=== PATIENT | male | born 2000 | race African-American/Black ===

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

== ENCOUNTER 2019-06-19 16:12 | Emergency (ER) | payer MEDICAID ==
[~2019-06-19] VITALS: Ht 180.3 cm; Wt 89.0 kg
[2019-06-19] MEDS ORDERED: AZITHROMYCIN 500 MG TABLET PO ONE (19:15)
[2019-06-19] MEDS ORDERED: SODIUM CHLORIDE 0.9% 1,000 ML IV ONE (19:15)
[2019-06-19] MEDS ORDERED: CEFTRIAXONE SODIUM 250 MG/VIAL IM ONE (19:15)
[2019-06-19] MEDS ORDERED: LIDOCAINE HCL 1% 20ML VIAL (Pyxis) INJ INFIL ONE (19:45)
[2019-06-19 19:58] LABS: BASOPHILS % 0.8 % (0.0-2.0); EOSINOPHILS % 2.4 % (0.0-5.0); HEMATOCRIT. 48.5 % (42.0-52.0); HEMOGLOBIN. 16.2 g/dL (14.0-18.0); LYMPHOCYTES % 44.6 % (20.0-50.0); MEAN CORPUSCULAR HEMOGLOBIN 28.2 pg (28.0-32.0); MEAN CORPUSCULAR VOLUME 84.5 fL (80.0-94.0); MEAN PLATELET VOLUME 8.1 fl (7.4-10.4); NEUTROPHILS % 41.2 % (40.0-76.0); PLATELET 201 x1000/uL (130-400); RED BLOOD CELL COUNT 5.74 mill/uL (4.7-6.1); RED CELL DISTRIBUTION WIDTH 13.3 % (11.6-14.6)
[2019-06-19 20:07] LABS: CHLORIDE 107 mEq/L (98-107)
[2019-06-19 20:12] LABS: ETHANOL BLOOD < 10 mg/dL
[2019-06-19 20:29] LABS: CLARITY URINE CLEAR (CLEAR); COLOR URINE YELLOW (YELLOW); KETONES URINE TRACE (NEGATIVE); LEUKOCYTE ESTERASE URINE NEGATIVE (NEGATIVE); NITRITE URINE NEGATIVE (NEGATIVE); OCCULT BLOOD URINE NEGATIVE (NEGATIVE); PROTEIN URINE NEGATIVE (NEGATIVE); SPECIFIC GRAVITY URINE 1.035 (1.005-1.030); UROBILINOGEN URINE 0.2 E.U./dL (0.2-1.0)
[2019-06-19 20:45] LABS: *AMPHETAMINES SCREEN URINE NEGATIVE (NEGATIVE); *BARBITURATES SCREEN URINE NEGATIVE (NEGATIVE); *BENZODIAZEPINES SCREEN URINE NEGATIVE (NEGATIVE)
[2019-06-19 20:46] LABS: *COCAINE SCREEN URINE NEGATIVE (NEGATIVE); CANNABINOID URINE SCREEN PRESUMTIVE POSITIVE (NEGATIVE); METHADONE URINE SCREEN NEGATIVE (NEGATIVE); OPIATES URINE SCREEN NEGATIVE (NEGATIVE); PHENCYCLIDINE URINE SCREEN NEGATIVE (NEGATIVE)
[2019-06-19 22:15] VITALS: BP 123/65
[2019-06-24 04:06] LABS: CHLAMYDIA TRACHOMATIS NAA Negative (Negative); NEISSERIA GONORRHOEAE NAA Negative (Negative)
== END 2019-06-19 22:29 | disposition home or self-care (01) ==
LOC: ER 16:12
DX: R42 Dizziness and giddiness (principal); R30.0 Dysuria; F12.10 Cannabis abuse, uncomplicated; Z79.899 Other long term (current) drug therapy
CPT/HCPCS: 36415; 80053; 80185; 80305; 80320; 81003; 85025; 87491; 87591; 93005; 96360; 96372; 99284; J0696; J7030; G0480

== ENCOUNTER 2022-02-02 15:08 | Emergency (ER) | payer MEDICAID ==
[~2022-02-02] VITALS: Ht 180.3 cm; Wt 95.0 kg
[2022-02-02] MEDS ORDERED: KETOROLAC 15MG/ML VIAL IM ONE (18:30)
[2022-02-02] MEDS ORDERED: AMOXICILLIN/POTASSIUM CLAVULANATE 875/125MG TAB PO ONE (18:30)
[2022-02-02] MEDS ORDERED: BACITRACIN 15GM TUBE TOP ONE (18:30)
[2022-02-02] MEDS ORDERED: NAPR-681 MT (20:22)
[2022-02-02] MEDS ORDERED: AMOX1TAB16 MT (20:22)
[2022-02-02 20:44] VITALS: BP 132/78
== END 2022-02-02 20:46 | disposition home or self-care (01) ==
LOC: ER 15:08
DX: S92.812A Other fracture of left foot, initial encounter for closed fracture (principal); W18.39XA Other fall on same level, initial encounter; Y93.89 Activity, other specified; Y92.89 Other specified places as the place of occurrence of the external cause; Y99.8 Other external cause status; F12.10 Cannabis abuse, uncomplicated
CPT/HCPCS: 73562; 73630; 96372; 99284; J1885; L1830; Z7610; 29515

== ENCOUNTER 2022-02-19 17:15 | Emergency (ER) | payer MEDICAID ==
[~2022-02-19] VITALS: Ht 180.3 cm; Wt 87.0 kg
[~2022-02-19 17:15] MED LIST changes: +AMOX1TAB16 MT; +NAPR-681 MT
[2022-02-19 17:31] VITALS: BP 145/95
== END 2022-02-19 23:24 | disposition left against medical advice (07) ==
LOC: ER 17:15
DX: Z53.21 Procedure and treatment not carried out due to patient leaving prior to being seen by health care provider (principal)

== ENCOUNTER 2025-04-24 21:05 | Emergency (ER) | payer MEDICAID, OTHER ==
[~2025-04-24] VITALS: Ht 185.4 cm; Wt 100.0 kg
[2025-04-24 21:13] VITALS: TEMP 98.6; O2SAT 100
[2025-04-24] MEDS: ONDANSETRON HCL 4MG/2ML INJ IV NR (22:38)
[2025-04-24] MEDS: SODIUM CHLORIDE 0.9% 1,000 ML IV ONE (22:38)
[2025-04-24] MEDS: MAGNESIUM/ALUMINUM HYDROXIDE/SIMETHICONE 30ML UDC PO NR (22:38)
[2025-04-24] MEDS: VISCOUS LIDOCAINE 2% 15 ML UDC MM NR (22:38)
[2025-04-24 22:39] LABS: BASOPHILS % 0.9 % (0.0-2.0); EOSINOPHILS % 0.3 % (0.0-5.0); HEMATOCRIT. 44.5 % (42.0-52.0); HEMOGLOBIN. 14.8 g/dL (14.0-18.0); LYMPHOCYTES % 13.7 % (20.0-50.0); MEAN PLATELET VOLUME 8.6 fl (7.4-10.4); MONOCYTES % 5.6 % (2.0-8.0); NEUTROPHILS % 79.5 % (40.0-76.0); PLATELET 250 x1000/uL (130-400); RED BLOOD CELL COUNT 5.10 mill/uL (4.7-6.1); RED CELL DISTRIBUTION WIDTH 12.9 % (11.6-14.6)
[2025-04-24 23:47] LABS: CREATININE 1.1 mg/dL (0.6-1.3); UREA NITROGEN BLOOD 11 mg/dL (9-23)
[2025-04-24 23:48] LABS: TROPONIN I HIGH SENSITIVITY 4 ng/L (3.0-53)
[2025-04-24 23:49] LABS: ASPARTATE AMINOTRANSFERASE 19 IU/L (<34); BILIRUBIN DIRECT 0.1 mg/dL (<=3.0)
[2025-04-24 23:50] LABS: BILIRUBIN TOTAL 0.3 mg/dL (0.1-1.0); PHENYTOIN < 2.0 ug/mL (10-20); PROTEIN TOTAL 6.6 g/dL (6.0-8.3)
[2025-04-25] MEDS ORDERED: OMEP40CA20 MT (00:18)
[2025-04-25 00:43] VITALS: BP 128/94; PULSE 94; RESP 17; O2SAT 100
== END 2025-04-25 00:30 ==
LOC: ER 21:05
DX: R07.89 Other chest pain (principal); K29.70 Gastritis, unspecified, without bleeding; R11.2 Nausea with vomiting, unspecified; Z02.89 Encounter for other administrative examinations; R06.02 Shortness of breath; Z79.899 Other long term (current) drug therapy
CPT/HCPCS: 80076; 80048; 80320; 80185; 83880; 83690; 85025; 85379; 84484; 36415; 71045; 93005; 96361; 96374; 99285; J2405; Z7610; G0480